=== PATIENT | female | born 1945 | race Caucasian/White ===

== ENCOUNTER 2017-08-31 09:58 | Emergency (ER) | payer SELFPAY ==
[~2017-08-31] VITALS: Ht 154.9 cm; Wt 77.0 kg
[~2017-08-31 09:58] MED LIST: GLIP-95; LISI10TA2; MTF1000T
[2017-08-31 10:02] VITALS: Ht 154.9 cm; Wt 77.0 kg
[2017-08-31] MEDS ORDERED: LACTATED RINGER'S 1,000 ML IV STA (10:54)
[2017-08-31] MEDS ORDERED: SOD CHLORIDE 0.9% 2,000 ML IV STA (10:54)
[2017-08-31 11:43] LABS: BASOPHIL # 0.1 10^3/ul (0.0-0.1); BASOPHILS % 0.7 % (0.0-2.0); EOSINOPHILS # 0.1 10^3/ul (0.0-0.5); HEMOGLOBIN 11.8 g/dl (12.0-16.0); LYMPHOCYTES # 2.5 10^3/ul (0.8-2.9); LYMPHOCYTES % 24.4 % (15.0-51.0); MEAN CORPUSCULAR HEMOGLOBIN 28.6 pg (29.0-33.0); MEAN CORPUSCULAR HGB CONC 32.8 g/dl (32.0-37.0); MEAN CORPUSCULAR VOLUME 87.4 fl (82.0-101.0); MEAN PLATELET VOLUME 10.5 fl (7.4-10.4); MONOCYTE # 0.7 10^3/ul (0.3-0.9); MONOCYTES % 6.7 % (0.0-11.0); NEUTROPHIL # 6.9 10^3/ul (1.6-7.5); NEUTROPHILS % 66.8 % (39.0-77.0); PLATELET COUNT 332 10^3/UL (140-415); RED BLOOD COUNT 4.12 10^6/ul (4.20-5.40); RED CELL DISTRIBUTION WIDTH 12.3 % (11.5-14.5); WHITE BLOOD COUNT 10.3 10^3/ul (4.8-10.8)
[2017-08-31 12:00] LABS: CALCIUM 8.7 mg/dl (8.4-10.2); CREATININE 1.22 mg/dl (0.44-1.00); POTASSIUM 4.6 mmol/L (3.5-5.1)
[2017-08-31 12:11] LABS: ADD UMIC YES; UR ASCORBIC ACID NEGATIVE (NEGATIVE); UR BACTERIA MANY /HPF (NONE SEEN); UR BILIRUBIN (Dip) NEGATIVE (NEGATIVE); UR BLOOD (Dip) 1+ mg/dL (NEGATIVE); UR CLARITY SLIGHTLY CLOUDY (CLEAR); UR COLOR YELLOW (YELLOW); UR GLUCOSE (Dip) 3+ mg/dL (NEGATIVE); UR KETONES (Dip) NEGATIVE (NEGATIVE); UR LEUKOCYTE ESTERASE (Dip) TRACE Leu/ul (NEGATIVE); UR MUCUS FEW /HPF (NONE SEEN); UR NITRITE (Dip) NEGATIVE (NEGATIVE); UR RBC 1 /HPF (0-5); UR SPECIFIC GRAVITY (Dip) 1.017 (1.003-1.030); UR SQUAMOUS EPITHELIAL CELL FEW /HPF (FEW); UR TOTAL PROTEIN (Dip) NEGATIVE (NEGATIVE); UR UROBILINOGEN (Dip) NEGATIVE (NEGATIVE)
[2017-08-31] MEDS ORDERED: NITROFURANTOIN (SR) 100 MG CAP PO ONE (12:30)
[2017-08-31] MEDS ORDERED: NITR-58 PO (12:31)
[2017-08-31] MEDS ORDERED: GABA300C16 PO (12:54)
[2017-08-31] MEDS ORDERED: HYDR25TA6 PO (12:54)
[2017-08-31] MEDS ORDERED: ATOR40TA68 PO (12:54)
[2017-08-31] MEDS ORDERED: INSU100I27 SQ (12:55)
[2017-08-31] MEDS ORDERED: LOSA50TA6 PO (12:55)
[2017-08-31] MEDS ORDERED: NOVO3I SC (12:56)
[2017-08-31] MEDS ORDERED: METF850T PO (12:57)
[2017-08-31 13:32] VITALS: BP 113/65; PULSE 65; RESP 17; TEMP 97.8
--- NOTE | 2017-08-31 14:31 | ERD ---
ER Documentation Chief Complaint Date/Time DATE: 08/31/17 TIME: 14:29 Chief Complaint hyperglicemia, non symtomatic, on insulin HPI Patient is a 71-year-old female with diabetes who presents with high blood sugar. She has had high blood sugar for the past 8 days. She takes insulin and pills. She felt dizzy. She said that she is urinating normally. Upon review of old medical records the patient one previous visit to the ER in 2010. Her primary doctor is Dr. Manzanares. She has not called the doctor as of yet. ROS All systems reviewed and are negative except as per history of present illness. Medications Home Meds Active Scripts Nitrofurantoin Monohyd Macrocr* (Macrobid*) 100 Mg Capsr, 100 MG PO BID for 7 Days, CAP Prov:ADDIS CORCORAN MD 08/31/17 Reported Medications Metformin Hcl* (Metformin Hcl*) 850 Mg Tablet, 850 MG PO WITH BREAKFAST DINNE, # 30 TAB 08/31/17 Insulin Aspart* (Novolog Insulin Pen*) 100 Unit/Ml Soln, 10 UNIT SC AC MEALS, EA 08/31/17 Insulin Detemir (Levemir Flextouch) 100 Unit/1 Ml Insuln.pen, 30 UNIT SQ QHS 08/31/17 Losartan Potassium* (Losartan Potassium*) 50 Mg Tablet, 50 MG PO DAILY, TAB 08/31/17 Hydrochlorothiazide* (Hydrochlorothiazide*) 25 Mg Tab, 25 MG PO DAILY, #30 TAB 08/31/17 Gabapentin* (Gabapentin*) 300 Mg Capsule, 300 MG PO QHS, #60 CAP 08/31/17 Atorvastatin* (Atorvastatin*) 40 Mg Tablet, 40 MG PO QHS, #30 TAB 08/31/17 Discontinued Reported Medications Glipizide* (Glipizide*) 10 Mg Tablet 01/03/11 Lisinopril* (Lisinopril*) 10 Mg Tablet 01/03/11 Metformin* (Glucophage*) 1,000 Mg Tablet 01/03/11 Allergies Allergies: Coded Allergies: No Known Allergies (Verified Allergy, Mild, 08/31/17) PMhx/Soc History of Surgery: Yes (L FOOT) Anesthesia Reaction: No Hx Neurological Disorder: No Hx Respiratory Disorders: No Hx Cardiac Disorders: Yes (HTN) Hx Psychiatric Problems: No Hx Miscellaneous Medical Probl: Yes (DM) Hx Alcohol Use: No Hx Substance Use: No Hx Tobacco Use: No Smoking Status: Never smoker FmHx Family History: diabetes Physical Exam Vitals Vital Signs Date Time Temp Pulse Resp B/P Pulse Ox O2 Delivery O2 Flow Rate FiO2 08/31/17 13:32 97.8 65 17 113/65 100 Room Air 08/31/17 10:02 98.1 83 18 201/95 99 Physical Exam Const: No acute distress Head: Atraumatic Eyes: Normal Conjunctiva ENT: Normal External Ears, Nose and Mouth. Neck: Full range of motion..~ No meningismus. Resp: Clear to auscultation bilaterally Cardio: Regular rate and rhythm, no murmurs Abd: Soft, non tender, non distended. Normal bowel sounds Skin: No petechiae or rashes Back: No midline or flank tenderness Ext: No cyanosis, or edema Neur: Awake and alert Psych: Normal Mood and Affect Result Diagram: 08/31/17 1130 08/31/17 1130 Results 24 hrs Laboratory Tests Test 08/31/17 11:30 08/31/17 11:55 08/31/17 13:00 08/31/17 13:01 White Blood Count 10.310^3/ul Red Blood Count 4.1210^6/ul Hemoglobin 11.8g/dl Hematocrit 36.0% Mean Corpuscular Volume 87.4fl Mean Corpuscular Hemoglobin 28.6pg Mean Corpuscular Hemoglobin Concent 32.8g/dl Red Cell Distribution Width 12.3% Platelet Count 13907^3/UL Mean Platelet Volume 10.5fl Neutrophils % 66.8% Lymphocytes % 24.4% Monocytes % 6.7% Eosinophils % 1.0% Basophils % 0.7% Nucleated Red Blood Cells % 0.0/100WBC Neutrophils # 6.910^3/ul Lymphocytes # 2.510^3/ul Monocytes # 0.710^3/ul Eosinophils # 0.110^3/ul Basophils # 0.110^3/ul Nucleated Red Blood Cells # 0.010^3/ul Sodium Level 135mmol/L Potassium Level 4.6mmol/L Chloride Level 101mmol/L Carbon Dioxide Level 24mmol/L Anion Gap 15 Blood Urea Nitrogen 41mg/dl Creatinine 1.22mg/dl Glucose Level 361mg/dl Calcium Level 8.7mg/dl Urine Color YELLOW Urine Clarity SLIGHTLY CLOUDY Urine pH 5.0 Urine Specific [place] 1.017 Urine Ketones NEGATIVEmg/dL Urine Nitrite NEGATIVEmg/dL Urine Bilirubin NEGATIVEmg/dL Urine Urobilinogen NEGATIVEmg/dL Urine Leukocyte Esterase TRACELeu/ul Urine Microscopic RBC 1/HPF Urine Microscopic WBC 5/HPF Urine Squamous Epithelial Cells FEW/HPF Urine Bacteria MANY/HPF Urine Mucus FEW/HPF Urine Hemoglobin 1+mg/dL Urine Glucose 3+mg/dL Urine Total Protein NEGATIVEmg/dl Lactic Acid Level 2.7mmol/L Bedside Glucose 234mg/dL Current Medications Medications (Trade) Dose Ordered Sig/Juli Route PRN Reason Start Time Stop Time Status Last Admin Dose Admin Sodium Chloride 2,000 ml @ 1,000 mls/hr Q2H STAT IV 08/31/17 10:54 08/31/17 12:53 DC 08/31/17 11:55 Lactated Ringer's (Lr) 1,000 ml @ 1,000 mls/hr Q1H STAT IV 08/31/17 10:54 08/31/17 11:53 DC 08/31/17 12:00 Nitrofurantoin Macrocrystals (Macrobid) 100 mg ONCE ONCE PO 08/31/17 12:30 08/31/17 12:31 DC 08/31/17 13:17 Procedures/MDM Patient is a 71-year-old female who presents with hyperglycemia. At this point there is no sign of diabetic ketoacidosis. Urinalysis shows acute infection and she will be treated with Macrobid. Her lactic acid is slightly elevated at 2.7 but I do not think she has sepsis. I believe outpatient management is appropriate she will need to follow-up closely with Dr. Manzanares within 24-48 hours. She should continue to take her insulin and diabetic pills as prescribed. She was given fluids to help improve the hyperglycemia. She can return for any worsening symptoms. Departure Diagnosis: Primary Impression: Cystitis Additional Impression: Hyperglycemia Condition: Fair Patient Instructions: Hyperglycemia (High Blood Sugar), Cystitis Referrals: FLAVIA MANZANARES MD Additional Instructions: Llame al doctor MAANA y lorin raman TANYA PARA DENTRO DE 1-2 CHOU.Dgale a la secretaria que nosotros le instruimos hacer esta tanya.Avise o llame si womack condicin se empeora antes de la tanya. Regresa aqui si peor o no mejor. ADDIS CORCORAN MD Aug 31, 2017 14:31
== END 2017-08-31 13:34 | disposition home or self-care (01) ==
LOC: E/R 09:58
DX: N30.90 Cystitis, unspecified without hematuria (principal); E11.65 Type 2 diabetes mellitus with hyperglycemia; I10 Essential (primary) hypertension; Z79.4 Long term (current) use of insulin; Z79.84 Long term (current) use of oral hypoglycemic drugs
CPT/HCPCS: 36415; 80048; 81001; 82962; 83605; 85025; 99284; J7030; J7120

== ENCOUNTER 2017-09-08 14:33 | Emergency (ER) | payer SELFPAY ==
[~2017-09-08] VITALS: Ht 157.5 cm; Wt 67.0 kg
[~2017-09-08 14:33] MED LIST changes: +ATOR40TA68 PO; +GABA300C16 PO; -GLIP-95; +HYDR25TA6 PO; +INSU100I27 SQ; -LISI10TA2; +LOSA50TA6 PO; +METF850T PO; -MTF1000T; +NITR-58 PO; +NOVO3I SC
[2017-09-08 14:45] VITALS: Ht 157.5 cm; Wt 67.0 kg
[2017-09-08] MEDS: LACTATED RINGER'S 1,000 ML IV STA ×2 (19:45→20:11)
[2017-09-08] MEDS ORDERED: SOD CHLORIDE 0.9% 2,000 ML IV STA (19:45)
[2017-09-08 20:19] LABS: BASOPHIL # 0.1 10^3/ul (0.0-0.1); BASOPHILS % 0.4 % (0.0-2.0); EOSINOPHILS # 0.2 10^3/ul (0.0-0.5); EOSINOPHILS % 1.4 % (0.0-7.0); HEMATOCRIT 37.2 % (37.0-47.0); HEMOGLOBIN 11.8 g/dl (12.0-16.0); LYMPHOCYTES # 3.5 10^3/ul (0.8-2.9); LYMPHOCYTES % 31.1 % (15.0-51.0); MEAN CORPUSCULAR HEMOGLOBIN 27.6 pg (29.0-33.0); MEAN CORPUSCULAR HGB CONC 31.7 g/dl (32.0-37.0); MEAN CORPUSCULAR VOLUME 86.9 fl (82.0-101.0); MEAN PLATELET VOLUME 10.4 fl (7.4-10.4); MONOCYTE # 0.9 10^3/ul (0.3-0.9); MONOCYTES % 8.1 % (0.0-11.0); NEUTROPHIL # 6.5 10^3/ul (1.6-7.5); NEUTROPHILS % 58.4 % (39.0-77.0); PLATELET COUNT 347 10^3/UL (140-415); RED BLOOD COUNT 4.28 10^6/ul (4.20-5.40); RED CELL DISTRIBUTION WIDTH 12.7 % (11.5-14.5); WHITE BLOOD COUNT 11.2 10^3/ul (4.8-10.8)
[2017-09-08] MEDS ORDERED: LABETALOL HCL 20MG INJ IV ONE (20:30)
[2017-09-08 20:32] LABS: CALCIUM 9.2 mg/dl (8.4-10.2); CREATININE 0.87 mg/dl (0.44-1.00); POTASSIUM 4.5 mmol/L (3.5-5.1)
[2017-09-08] MEDS ORDERED: METF850T PO (20:50)
[2017-09-08] MEDS ORDERED: LEVEM SC (20:50)
[2017-09-08] MEDS ORDERED: LOSA50TA6 PO (20:50)
[2017-09-08] MEDS ORDERED: HYDR25TA6 PO (20:50)
[2017-09-08] MEDS ORDERED: INSU100C3 SQ (20:50)
[2017-09-08 20:58] VITALS: BP 146/67; PULSE 72; RESP 17; TEMP 98.3
[2017-09-08 20:58] LABS: ADD UMIC YES; UR ASCORBIC ACID NEGATIVE (NEGATIVE); UR BACTERIA MANY /HPF (NONE SEEN); UR BILIRUBIN (Dip) NEGATIVE (NEGATIVE); UR BLOOD (Dip) 1+ mg/dL (NEGATIVE); UR CLARITY SLIGHTLY CLOUDY (CLEAR); UR COLOR YELLOW (YELLOW); UR GLUCOSE (Dip) 3+ mg/dL (NEGATIVE); UR KETONES (Dip) NEGATIVE (NEGATIVE); UR LEUKOCYTE ESTERASE (Dip) 1+ Leu/ul (NEGATIVE); UR NITRITE (Dip) POSITIVE (NEGATIVE); UR RBC 1 /HPF (0-5); UR SPECIFIC GRAVITY (Dip) 1.009 (1.003-1.030); UR SQUAMOUS EPITHELIAL CELL FEW /HPF (FEW); UR TOTAL PROTEIN (Dip) NEGATIVE (NEGATIVE); UR UROBILINOGEN (Dip) NEGATIVE (NEGATIVE)
--- NOTE | 2017-09-08 21:22 | ERD ---
ER Documentation Chief Complaint Date/Time DATE: 09/08/17 TIME: 21:20 Chief Complaint dizzines off meds x 2 weeks HPI Patient is a 71-year-old female with hypertension and diabetes who presents with dizziness. The patient has had dizziness for the past 2 weeks. She has not had her medications for the past 15 days. She try to go to Dr. Manzanares but her insurance had been switched and so he was not able to see her. The patient is missing prescriptions for Levemir, metformin, NovoLog, hydrochlorothiazide, and losartan. ROS All systems reviewed and are negative except as per history of present illness. Medications Home Meds Active Scripts Losartan Potassium* (Losartan Potassium*) 50 Mg Tablet, 50 MG PO DAILY, #30 TAB Prov:ADDIS CORCORAN MD 09/08/17 Hydrochlorothiazide* (Hydrochlorothiazide*) 25 Mg Tab, 25 MG PO DAILY, #30 TAB Prov:ADDIS CORCORAN MD 09/08/17 Insulin Aspart (Novolog) 100 Unit/1 Ml Cartridge, 10 UNIT SQ WITH MEALS, #1 Prov:ADDIS CORCORAN MD 09/08/17 Metformin Hcl* (Metformin Hcl*) 850 Mg Tablet, 850 MG PO BID, #60 TAB Prov:ADDIS CORCORAN MD 09/08/17 Insulin Detemir (Levemir) 100 Unit/1 Ml Vial, 30 UNIT SC QHS, #1 VIAL Prov:ADDIS CORCORAN MD 09/08/17 Reported Medications Metformin Hcl* (Metformin Hcl*) 850 Mg Tablet, 850 MG PO WITH BREAKFAST DINNE, # 30 TAB 08/31/17 Insulin Aspart* (Novolog Insulin Pen*) 100 Unit/Ml Soln, 10 UNIT SC AC MEALS qam , EA 08/31/17 Insulin Detemir (Levemir Flextouch) 100 Unit/1 Ml Insuln.pen, 30 UNIT SQ QHS 08/31/17 Losartan Potassium* (Losartan Potassium*) 50 Mg Tablet, 50 MG PO DAILY, TAB 08/31/17 Hydrochlorothiazide* (Hydrochlorothiazide*) 25 Mg Tab, 25 MG PO DAILY, #30 TAB 08/31/17 Gabapentin* (Gabapentin*) 300 Mg Capsule, 300 MG PO QHS, #60 CAP 08/31/17 Atorvastatin* (Atorvastatin*) 40 Mg Tablet, 40 MG PO QHS, #30 TAB 08/31/17 Discontinued Scripts Nitrofurantoin Monohyd Macrocr* (Macrobid*) 100 Mg Capsr, 100 MG PO BID for 7 Days, CAP Prov:ADDIS CORCORAN MD 08/31/17 Allergies Allergies: Coded Allergies: No Known Allergies (Verified Allergy, Mild, 09/08/17) PMhx/Soc History of Surgery: Yes (toe amputation) Anesthesia Reaction: No Hx Neurological Disorder: No Hx Respiratory Disorders: No Hx Cardiac Disorders: Yes (HTN, high cholesterol) Hx Psychiatric Problems: No Hx Miscellaneous Medical Probl: Yes (DM) Hx Alcohol Use: No Hx Substance Use: No Hx Tobacco Use: No Smoking Status: Never smoker FmHx Family History: diabetes Physical Exam Vitals Vital Signs Date Time Temp Pulse Resp B/P Pulse Ox O2 Delivery O2 Flow Rate FiO2 09/08/17 20:58 98.3 72 17 146/67 99 Room Air 09/08/17 14:45 98.3 81 18 185/81 99 Physical Exam Const: No acute distress Head: Atraumatic Eyes: Normal Conjunctiva ENT: Normal External Ears, Nose and Mouth. Neck: Full range of motion..~ No meningismus. Resp: Clear to auscultation bilaterally Cardio: Regular rate and rhythm, no murmurs Abd: Soft, non tender, non distended. Normal bowel sounds Skin: No petechiae or rashes Back: No midline or flank tenderness Ext: No cyanosis, or edema Neur: Awake and alert, no slurred speech, no pronator drift, strength is 5 out of 5 in all 4 extremities, cranial nerves II through XII are intact Psych: Normal Mood and Affect Result Diagram: 09/08/17199909/08/171999 Results 24 hrs Laboratory Tests Test 09/08/17 19:47 09/08/17 20:00 Bedside Glucose 244mg/dL White Blood Count 11.210^3/ul Red Blood Count 4.2810^6/ul Hemoglobin 11.8g/dl Hematocrit 37.2% Mean Corpuscular Volume 86.9fl Mean Corpuscular Hemoglobin 27.6pg Mean Corpuscular Hemoglobin Concent 31.7g/dl Red Cell Distribution Width 12.7% Platelet Count 92349^3/UL Mean Platelet Volume 10.4fl Neutrophils % 58.4% Lymphocytes % 31.1% Monocytes % 8.1% Eosinophils % 1.4% Basophils % 0.4% Nucleated Red Blood Cells % 0.0/100WBC Neutrophils # 6.510^3/ul Lymphocytes # 3.510^3/ul Monocytes # 0.910^3/ul Eosinophils # 0.210^3/ul Basophils # 0.110^3/ul Nucleated Red Blood Cells # 0.010^3/ul Urine Color YELLOW Urine Clarity SLIGHTLY CLOUDY Urine pH 5.0 Urine Specific [place] 1.009 Urine Ketones NEGATIVEmg/dL Urine Nitrite POSITIVEmg/dL Urine Bilirubin NEGATIVEmg/dL Urine Urobilinogen NEGATIVEmg/dL Urine Leukocyte Esterase 1+Ben/ul Urine Microscopic RBC 1/HPF Urine Microscopic WBC 12/HPF Urine Squamous Epithelial Cells FEW/HPF Urine Bacteria MANY/HPF Urine Hemoglobin 1+mg/dL Urine Glucose 3+mg/dL Urine Total Protein NEGATIVEmg/dl Sodium Level 135mmol/L Potassium Level 4.5mmol/L Chloride Level 97mmol/L Carbon Dioxide Level 31mmol/L Anion Gap 12 Blood Urea Nitrogen 25mg/dl Creatinine 0.87mg/dl Glucose Level 263mg/dl Lactic Acid Level 1.8mmol/L Calcium Level 9.2mg/dl Current Medications Medications (Trade) Dose Ordered Sig/Juli Route PRN Reason Start Time Stop Time Status Last Admin Dose Admin Sodium Chloride 2,000 ml @ 1,000 mls/hr Q2H STAT IV 09/08/17 19:45 09/08/17 21:44 09/08/17 20:16 Lactated Ringer's (Lr) 1,000 ml @ 1,000 mls/hr Q1H STAT IV 09/08/17 19:45 09/08/17 20:44 DC Labetalol HCl (Labetalol) 20 mg ONCE ONCE IV 09/08/17 20:30 09/08/17 20:31 DC 09/08/17 20:28 Procedures/MDM Patient is a 71-year-old female with hypertension and diabetes who presents with dizziness. She has not had her medications for 15 days and symptoms started 14 days ago. I believe this is likely related to the fact that she is not taking medication. The patient will be given a prescription for Levemir, metformin, NovoLog, hydrochlorothiazide, and losartan. The patient will need to follow-up with a new primary doctor and I will give her information for the local clinics which she should follow-up in 24-48 hours. The patient can return for any worsening symptoms. There is no signs of diabetic ketoacidosis. I doubt stroke. Departure Diagnosis: Primary Impression: Hypertension Hypertension type: essential hypertension Qualified Code: I10 - Essential hypertension Additional Impressions: Dizziness Hyperglycemia Condition: Fair Patient Instructions: Hyperglycemia (High Blood Sugar), High Blood Pressure ( Hypertension) [facility] Usted se bundy hecho un examen mdico de control que le indica que no est en raman condicin que requiera tratamiento urgente en el Departamento de Emergencia. Un estudio ms profundo y el tratamiento de womack condicin pueden esperar sin ningn riesgo hasta que usted sea atendida/o en el consultorio de womack mdico o raman cl flora. Es responsabilidad suya arreglar raman tanya para el seguimiento del jaylan. MANEJO DE CONDICIONES NO URGENTES EN EL FUTURO 1) Si usted tiene un mdico de atencin primaria: Usted debera llamar a womack mdico de atencin primaria antes de venir al departamento de emergencia. Despus de las horas de consultorio, womack doctor o womack asociado/a est disponible por telfono. El mdico o enfermero de joselo en el servicio telefnico puede asesorarle por arik medio para atender el problema, o jaylan contrario se puede programar raman tanay. 2) Si usted no tiene un mdico de atencin primaria: Llame al mdico o clnica de referencia que aparece abajo [place] las horas de consultorio para hacer raman tanya para que le vean. CLINICAS: [facility] 451 [phone] [address] [facility] [phone] [address] [facility] [phone] [address] [facility] 607 [phone] [address] [facility] 485 [phone] [address] [facility] [phone] [address] Additional Instructions: Llame al doctor MAANA y lorin raman TANYA PARA DENTRO DE 1-2 CHOU.Dgale a la secretaria que nosotros le instruimos hacer esta tanya.Avise o llame si womack condicin se empeora antes de la tanya. Regresa aqui si peor o no mejor. ADDIS CORCORAN MD Sep 08, 2017 21:22
== END 2017-09-08 21:33 | disposition home or self-care (01) ==
LOC: E/R 14:33
DX: I10 Essential (primary) hypertension (principal); E11.65 Type 2 diabetes mellitus with hyperglycemia; Z79.4 Long term (current) use of insulin; Z79.84 Long term (current) use of oral hypoglycemic drugs
CPT/HCPCS: 36415; 80048; 81001; 82962; 83605; 85025; 96374; 99284; J7030; J7120

== ENCOUNTER 2017-09-18 09:31 | Emergency (ER) | payer SELFPAY ==
[~2017-09-18] VITALS: Ht 152.4 cm; Wt 75.5 kg
[~2017-09-18 09:31] MED LIST changes: +INSU100C3 SQ; +LEVEM SC; -NITR-58 PO
[2017-09-18 09:38] VITALS: Ht 152.4 cm; Wt 75.5 kg
[2017-09-18] MEDS ORDERED: FAMOTIDINE 20 MG INJ IV STA (12:00)
[2017-09-18] MEDS ORDERED: ONDANSETRON 4 MG INJ IV STA (12:00)
[2017-09-18] MEDS ORDERED: SOD CHLORIDE 0.9% 500 ML IV STA (12:00)
[2017-09-18 12:33] LABS: BASOPHIL # 0.1 10^3/ul (0.0-0.1); BASOPHILS % 0.6 % (0.0-2.0); EOSINOPHILS # 0.2 10^3/ul (0.0-0.5); HEMATOCRIT 37.9 % (37.0-47.0); HEMOGLOBIN 12.2 g/dl (12.0-16.0); LYMPHOCYTES # 2.9 10^3/ul (0.8-2.9); LYMPHOCYTES % 28.9 % (15.0-51.0); MEAN CORPUSCULAR HEMOGLOBIN 28.4 pg (29.0-33.0); MEAN CORPUSCULAR HGB CONC 32.2 g/dl (32.0-37.0); MEAN CORPUSCULAR VOLUME 88.3 fl (82.0-101.0); MONOCYTE # 0.7 10^3/ul (0.3-0.9); MONOCYTES % 7.4 % (0.0-11.0); NEUTROPHIL # 6.1 10^3/ul (1.6-7.5); NEUTROPHILS % 60.8 % (39.0-77.0); PLATELET COUNT 363 10^3/UL (140-415); RED BLOOD COUNT 4.29 10^6/ul (4.20-5.40); RED CELL DISTRIBUTION WIDTH 12.8 % (11.5-14.5)
--- NOTE | 2017-09-18 12:34 | RADRPT ---
PROCEDURE: CT ABDOMEN AND PELVIS WITHOUT CONTRAST. CLINICAL INDICATION: Upper abdominal pain TECHNIQUE: CT scan of the abdomen and pelvis without contrast was performed on a multidetector hig h-resolution CT scanner. The patient was scanned without intravenous contrast. Coronal and sagittal reformatted images were obtained from the axial source images. Images were reviewed on a high-resol RealD PACS workstation. The total exam CTDI equals 18.8 mGy and the total exam DLP equals 1097 mGy-c m. One or more of the following dose reduction techniques were used: Automated exposure control. Adjustment of the mA and/or kV according to patient size. Use of iterative reconstruction technique. COMPARISON: None FINDINGS: CT abdomen: The lung bases are clear. The heart size is within limits. There is no significant pericardial effus ion. Hepatic morphology is within normal limits. No gross contour deforming masses. The gallbladder is wi thin normal limits. No evidence of intrahepatic or extrahepatic biliary dilatation. The spleen and pancreas are within normal limits. Both adrenal glands are within normal limits. Both kidneys are and normal anatomic position. There is nonspecific bilateral perinephric fat strand ing. No gross renal/ureteric calculi. No evidence of obstruction or hydronephrosis. The visualized GI tract demonstrates collapse stomach. Normal caliber loops of small and large bowel noted. No evidence of bowel obstruction. The appendix is within normal limits. Atherosclerotic calcification of the aorta is identified. There is no significant retroperitoneal ly mphadenopathy. CT pelvis: There is thickening of the wall the bladder and several foci of air is noted within the lumen of the bladder.. There is calcified leiomyomatous uterus. The rectosigmoid colon is within normal limits. No significant free fluid. No significant pelvic lymphadenopathy. The visualized osseous structures demonstrates multilevel degenerative disease of the spine. IMPRESSION: 1. No evidence of bowel obstruction. The appendix is within normal limits. 2. Thickening of the wall the bladder, cannot exclude infectious versus inflammatory cystitis. Sever al foci of air is noted within the lumen of the bladder, which may be related to recent catheterizat ion. Correlate clinically otherwise, infection is not excluded. 3. Calcified leiomyomatous uterus. 4. Atherosclerosis of the aorta. 5. Nonspecific bilateral perinephric fat stranding. No gross renal/ureteric calculi. No evidence of obstruction or hydronephrosis. RPTAT: AAPP Physician Alysia Date Time Electronically viewed and signed by Agustín Ríos Physician on 09/18/2017 12:34 JL/
[2017-09-18 12:38] LABS: ADD UMIC YES; UR ASCORBIC ACID NEGATIVE (NEGATIVE); UR BACTERIA MODERATE /HPF (NONE SEEN); UR BILIRUBIN (Dip) NEGATIVE (NEGATIVE); UR BLOOD (Dip) 1+ mg/dL (NEGATIVE); UR CLARITY CLEAR (CLEAR); UR COLOR YELLOW (YELLOW); UR GLUCOSE (Dip) 1+ mg/dL (NEGATIVE); UR KETONES (Dip) NEGATIVE (NEGATIVE); UR LEUKOCYTE ESTERASE (Dip) NEGATIVE Leu/ul (NEGATIVE); UR NITRITE (Dip) NEGATIVE (NEGATIVE); UR RBC 0 /HPF (0-5); UR SPECIFIC GRAVITY (Dip) 1.011 (1.003-1.030); UR TOTAL PROTEIN (Dip) NEGATIVE (NEGATIVE); UR UROBILINOGEN (Dip) NEGATIVE (NEGATIVE)
[2017-09-18 12:49] LABS: ALBUMIN 4.2 g/dl (3.3-4.9); ALBUMIN/GLOBULIN RATIO 0.93; BILIRUBIN,INDIRECT 0.2 mg/dl (0-1.1); BILIRUBIN,TOTAL 0.2 mg/dl (0.2-1.3); CREATININE 0.88 mg/dl (0.44-1.00); POTASSIUM 4.6 mmol/L (3.5-5.1); TOTAL PROTEIN 8.7 g/dl (6.1-8.1)
--- NOTE | 2017-09-18 13:20 | ERD ---
ER Documentation Chief Complaint Chief Complaint Complains of abdominal pain x 3 days HPI This is a 71-year-old female who presents to the emergency room for evaluation of abdominal pain. The patient states that she has had abdominal pain for the past 3 days. She states it is located in the midportion of abdomen and described as a burning pain made worse with food. The patient denies any radiation of the pain. She denies any chest pain or palpitations or shortness of breath associated with this. She denies any diarrhea. She came to the emergency room for evaluation of her pain. ROS All systems reviewed and are negative except as per history of present illness. Medications Home Meds Reported Medications Metformin Hcl* (Metformin Hcl*) 850 Mg Tablet, 850 MG PO WITH BREAKFAST DINNE, # 30 TAB 08/31/17 Insulin Aspart* (Novolog Insulin Pen*) 100 Unit/Ml Soln, 10 UNIT SC AC MEALS qam , EA 08/31/17 Insulin Detemir (Levemir Flextouch) 100 Unit/1 Ml Insuln.pen, 30 UNIT SQ QHS 08/31/17 Losartan Potassium* (Losartan Potassium*) 50 Mg Tablet, 50 MG PO DAILY, TAB 08/31/17 Hydrochlorothiazide* (Hydrochlorothiazide*) 25 Mg Tab, 25 MG PO DAILY, #30 TAB 08/31/17 Gabapentin* (Gabapentin*) 300 Mg Capsule, 300 MG PO QHS, #60 CAP 08/31/17 Atorvastatin* (Atorvastatin*) 40 Mg Tablet, 40 MG PO QHS, #30 TAB 08/31/17 Discontinued Scripts Losartan Potassium* (Losartan Potassium*) 50 Mg Tablet, 50 MG PO DAILY, #30 TAB Prov:ADDIS CORCORAN MD 09/08/17 Hydrochlorothiazide* (Hydrochlorothiazide*) 25 Mg Tab, 25 MG PO DAILY, #30 TAB Prov:ADDIS CORCORAN MD 09/08/17 Insulin Aspart (Novolog) 100 Unit/1 Ml Cartridge, 10 UNIT SQ WITH MEALS, #1 Prov:ADDIS CORCORAN MD 09/08/17 Metformin Hcl* (Metformin Hcl*) 850 Mg Tablet, 850 MG PO BID, #60 TAB Prov:ADDIS CORCORAN MD 09/08/17 Insulin Detemir (Levemir) 100 Unit/1 Ml Vial, 30 UNIT SC QHS, #1 VIAL Prov:ADDIS CORCORAN MD 09/08/17 Allergies Allergies: Coded Allergies: No Known Allergies (Verified Allergy, Mild, 09/18/17) PMhx/Soc History of Surgery: Yes (toe amputation) Anesthesia Reaction: No Hx Neurological Disorder: No Hx Respiratory Disorders: No Hx Cardiac Disorders: Yes (HTN, high cholesterol) Hx Psychiatric Problems: No Hx Miscellaneous Medical Probl: Yes (DM) Hx Alcohol Use: No Hx Substance Use: No Hx Tobacco Use: No Smoking Status: Never smoker Physical Exam Vitals Vital Signs Date Time Temp Pulse Resp B/P Pulse Ox O2 Delivery O2 Flow Rate FiO2 09/18/17 13:03 97.1 80 20 164/81 100 Room Air 09/18/17 09:38 97.1 83 20 190/89 93 Physical Exam INITIAL VITAL SIGNS: Reviewed by me GENERAL: The patient is well developed and appropriate for usual state of health in no apparent distress HEENT: Pupils equal, round, and reactive to light. EOMI. There is no scleral icterus. NECK: C-spine is soft and supple, there is no meningismus. There is no cervical lymphadenopathy. LUNGS: Clear to auscultation bilaterally. There are no rales, wheezes or rhonchi. HEART: Regular rate and rhythm, no murmurs, clicks, rubs or gallops. ABDOMEN: Epigastric tenderness to palpation, negative Griffith sign, soft, non- tender, non-distended. There are bowel sounds in all four quadrants. No rebound or guarding. EXTREMITIES: There is no peripheral cyanosis or edema. No focal swelling or erythema. NEUROLOGICAL: The patient moves all four extremities with 5/5 strength. Cranial nerves II - XII are intact. Normal gait. Alert and oriented SKIN: There is no apparent rash or petechiae. HEME/LYMPHATIC: There is no evidence of excessive bruising or lymphedema. PSYCHIATRIC: The patient does not appear anxious or depressed. Result Diagram: 09/18/17 1210 09/18/17 1210 Results 24 hrs Laboratory Tests Test 09/18/17 12:05 09/18/17 12:10 Urine Color YELLOW Urine Clarity CLEAR Urine pH 5.0 Urine Specific [place] 1.011 Urine Ketones NEGATIVEmg/dL Urine Nitrite NEGATIVEmg/dL Urine Bilirubin NEGATIVEmg/dL Urine Urobilinogen NEGATIVEmg/dL Urine Leukocyte Esterase NEGATIVELeu/ul Urine Microscopic RBC 0/HPF Urine Microscopic WBC 1/HPF Urine Bacteria MODERATE/HPF Urine Hemoglobin 1+mg/dL Urine Glucose 1+mg/dL Urine Total Protein NEGATIVEmg/dl White Blood Count 10.010^3/ul Red Blood Count 4.2910^6/ul Hemoglobin 12.2g/dl Hematocrit 37.9% Mean Corpuscular Volume 88.3fl Mean Corpuscular Hemoglobin 28.4pg Mean Corpuscular Hemoglobin Concent 32.2g/dl Red Cell Distribution Width 12.8% Platelet Count 36982^3/UL Mean Platelet Volume 10.0fl Neutrophils % 60.8% Lymphocytes % 28.9% Monocytes % 7.4% Eosinophils % 2.0% Basophils % 0.6% Nucleated Red Blood Cells % 0.0/100WBC Neutrophils # 6.110^3/ul Lymphocytes # 2.910^3/ul Monocytes # 0.710^3/ul Eosinophils # 0.210^3/ul Basophils # 0.110^3/ul Nucleated Red Blood Cells # 0.010^3/ul Sodium Level 140mmol/L Potassium Level 4.6mmol/L Chloride Level 101mmol/L Carbon Dioxide Level 28mmol/L Anion Gap 16 Blood Urea Nitrogen 26mg/dl Creatinine 0.88mg/dl Glucose Level 115mg/dl Calcium Level 10.0mg/dl Total Bilirubin 0.2mg/dl Direct Bilirubin 0.00mg/dl Indirect Bilirubin 0.2mg/dl Aspartate Amino Transf (AST/SGOT) 32IU/L Alanine Aminotransferase (ALT/SGPT) 29IU/L Alkaline Phosphatase 136IU/L Total Protein 8.7g/dl Albumin 4.2g/dl Globulin 4.50g/dl Albumin/Globulin Ratio 0.93 Lipase 65U/L Current Medications Medications (Trade) Dose Ordered Sig/Juli Route PRN Reason Start Time Stop Time Status Last Admin Dose Admin Sodium Chloride (NS) 500 ml @ 500 mls/hr Q1H STAT IV 09/18/17 12:00 09/18/17 12:59 DC 09/18/17 12:38 Ondansetron HCl (Zofran Inj) 4 mg ONCE STAT IV 09/18/17 12:00 09/18/17 12:02 DC 09/18/17 12:38 Famotidine (Pepcid Iv) 20 mg ONCE STAT IV 09/18/17 12:00 09/18/17 12:02 DC 09/18/17 12:38 Procedures/MDM CT abdomen pelvis without:1. No evidence of bowel obstruction. The appendix is within normal limits. 2. Thickening of the wall the bladder, cannot exclude infectious versus inflammatory cystitis. Several foci of air is noted within the lumen of the bladder, which may be related to recent catheterization. Correlate clinically otherwise, infection is not excluded. 3. Calcified leiomyomatous uterus. 4. Atherosclerosis of the aorta. 5. Nonspecific bilateral perinephric fat stranding. No gross renal/ureteric calculi. No evidence of obstruction or hydronephrosis. EKG: Rate/Rhythm: [Normal Sinus Rhythm] QRS, ST, T-waves: [No changes consistent w/ acute ischemia] Impression: [No evidence of ischemia or arrhythmia] This 71 she did have some tenderness to palpation in the epigastric region. The patient did undergo a CT of the abdomen pelvis which does show thickening of the wall of the bladder. The patient was seen in the emergency room earlier this week and was diagnosed with a urinary tract infection has been treated with Macrobid. Her urinalysis has improved from previous. She is having no suprapubic tenderness at this time. Did advise her to continue using her antibiotics until her regimen is over. The patient was given Zofran and Pepcid in the emergency room for her pain and when I reevaluated her she stated she was feeling better. The patient is likely suffering from gastritis. Her EKG is nonischemic, troponin is negative. The patient states that she feels comfortable with discharge at this time. She is denying any chest pain or shortness of breath. My suspicion for ACS is low at this time given the fact that her symptoms have improved with Pepcid and Zofran. This patient was advised she can return to the emergency room at any point for reevaluation and she verbalized understanding. Differential diagnoses entertained was broad with potential high acuity. Patient has been evaluated for appendicitis, cholecystitis, and other high risk medical and surgical causes of abdominal pain. Ultimately the patient's evaluation is nondiagnostic. Based on the patient's lack of risk factors, as well as the patient's clinical, laboratory, and imaging data, the patient appears to be low risk for these high risk causes of abdominal pain. Differential diagnoses entertained was broad with potential high acuity. Patient has been evaluated for acute myocardial infarction, unstable angina, aortic dissection, pulmonary embolism, other intrathoracic and cardiac concerns. Ultimately the patient's evaluation is nondiagnostic. Based on the patient's lack of risk factors, as well as the patient's clinical, laboratory, and imaging data, the patient appears to be low risk for these high risk causes of chest pain. Departure Diagnosis: Primary Impression: Abdominal pain Additional Impression: Cystitis Condition: Stable HERNANDEZ CAMARA DO Sep 18, 2017 13:20
[2017-09-18] MEDS ORDERED: RANI150T9 PO (13:21)
[2017-09-18 14:25] VITALS: BP 146/79; PULSE 83; RESP 20; TEMP 97.1
== END 2017-09-18 14:25 | disposition home or self-care (01) ==
LOC: E/R 09:31
DX: N30.90 Cystitis, unspecified without hematuria (principal); I10 Essential (primary) hypertension; E11.9 Type 2 diabetes mellitus without complications; Z79.4 Long term (current) use of insulin; Z79.84 Long term (current) use of oral hypoglycemic drugs
CPT/HCPCS: 36415; 74176; 80053; 81001; 83690; 84484; 85025; 93005; 96374; 96375; 99285; J2405; J7040

== ENCOUNTER 2017-09-22 10:32 | Emergency (ER) | payer MEDICAID ==
[~2017-09-22] VITALS: Ht 149.9 cm; Wt 73.5 kg
[~2017-09-22 10:32] MED LIST changes: -INSU100C3 SQ; -LEVEM SC; +RANI150T9 PO
[2017-09-22 10:37] VITALS: Ht 149.9 cm; Wt 73.5 kg
--- NOTE | 2017-09-22 12:21 | ERD ---
ER Documentation Chief Complaint Chief Complaint Back pain HPI The patient is a 71-year-old female, presenting to the ER because of back pain intermittently for the last 2 weeks, worse with movement. She also, epigastric abdominal pain intermittently for the last 8 days, associated with constipation and dysuria. She was seen in the ER 2 weeks ago for abdominal pain and had a normal abdominopelvic CT scan. She denies nausea, vomiting, diarrhea. She does not smoke nor drink Past medical history: Hypertension, dyslipidemia, diabetes mellitus, gastritis Past surgical history eye surgery ROS All systems reviewed and are negative except as per history of present illness. Medications Home Meds Active Scripts Tramadol HCl (Tramadol HCl) 50 Mg Tablet, 50 MG PO Q6, #15 TAB Prov:DORINA STEWART MD 09/22/17 Ranitidine Hcl* (Zantac*) 150 Mg Tablet, 150 MG PO BID Y for EPIGASTRIC PAIN, # 30 TAB Prov:HERNANDEZ CAMARA DO 09/18/17 Reported Medications Metformin Hcl* (Metformin Hcl*) 850 Mg Tablet, 850 MG PO WITH BREAKFAST DINNE, # 30 TAB 08/31/17 Insulin Aspart* (Novolog Insulin Pen*) 100 Unit/Ml Soln, 10 UNIT SC AC MEALS qam , EA 08/31/17 Insulin Detemir (Levemir Flextouch) 100 Unit/1 Ml Insuln.pen, 30 UNIT SQ QHS 08/31/17 Losartan Potassium* (Losartan Potassium*) 50 Mg Tablet, 50 MG PO DAILY, TAB 08/31/17 Hydrochlorothiazide* (Hydrochlorothiazide*) 25 Mg Tab, 25 MG PO DAILY, #30 TAB 08/31/17 Gabapentin* (Gabapentin*) 300 Mg Capsule, 300 MG PO QHS, #60 CAP 08/31/17 Atorvastatin* (Atorvastatin*) 40 Mg Tablet, 40 MG PO QHS, #30 TAB 08/31/17 Discontinued Scripts Losartan Potassium* (Losartan Potassium*) 50 Mg Tablet, 50 MG PO DAILY, #30 TAB Prov:ADDIS CORCORAN MD 09/08/17 Hydrochlorothiazide* (Hydrochlorothiazide*) 25 Mg Tab, 25 MG PO DAILY, #30 TAB Prov:ADDIS CORCORAN MD 09/08/17 Insulin Aspart (Novolog) 100 Unit/1 Ml Cartridge, 10 UNIT SQ WITH MEALS, #1 Prov:ADDIS CORCORAN MD 09/08/17 Metformin Hcl* (Metformin Hcl*) 850 Mg Tablet, 850 MG PO BID, #60 TAB Prov:ADDIS CORCORAN MD 09/08/17 Insulin Detemir (Levemir) 100 Unit/1 Ml Vial, 30 UNIT SC QHS, #1 VIAL Prov:ADDIS CORCORAN MD 09/08/17 Allergies Allergies: Coded Allergies: No Known Allergies (Verified Allergy, Mild, 09/18/17) PMhx/Soc History of Surgery: Yes (toe amputation) Anesthesia Reaction: No Hx Neurological Disorder: No Hx Respiratory Disorders: No Hx Cardiac Disorders: Yes (HTN, high cholesterol) Hx Psychiatric Problems: No Hx Miscellaneous Medical Probl: Yes (DM) Hx Alcohol Use: No Hx Substance Use: No Hx Tobacco Use: No Physical Exam Vitals Vital Signs Date Time Temp Pulse Resp B/P Pulse Ox O2 Delivery O2 Flow Rate FiO2 09/22/17 13:15 81 17 186/76 100 Room Air 09/22/17 10:37 98.7 84 19 176/79 96 Physical Exam Const: No acute distress. Head: Atraumatic. Eyes: Normal Conjunctiva. ENT: Normal External Ears, Nose and Mouth. Neck: Full range of motion. No meningismus. Resp: Clear to auscultation bilaterally. Cardio: Regular rate and rhythm. Abd: Soft, non distended, normal bowel sounds, Minimal epigastric discomfort, no right lower quadrant, right upper quadrant, CVA tenderness Skin: No petechiae or rashes. Back: No midline or flank tenderness. Ext: No cyanosis, or edema. Neur: Awake and alert. No focal deficit Psych: Normal Mood and Affect. Result Diagram: 09/22/17 1235 09/22/17 1235 Results 24 hrs Laboratory Tests Test 09/22/17 12:35 White Blood Count 9.910^3/ul Red Blood Count 4.1010^6/ul Hemoglobin 11.7g/dl Hematocrit 36.2% Mean Corpuscular Volume 88.3fl Mean Corpuscular Hemoglobin 28.5pg Mean Corpuscular Hemoglobin Concent 32.3g/dl Red Cell Distribution Width 12.7% Platelet Count 42810^3/UL Mean Platelet Volume 10.0fl Neutrophils % 72.4% Lymphocytes % 19.6% Monocytes % 6.0% Eosinophils % 1.0% Basophils % 0.5% Nucleated Red Blood Cells % 0.0/100WBC Neutrophils # 7.210^3/ul Lymphocytes # 1.910^3/ul Monocytes # 0.610^3/ul Eosinophils # 0.110^3/ul Basophils # 0.110^3/ul Nucleated Red Blood Cells # 0.010^3/ul Urine Color YELLOW Urine Clarity SLIGHTLY CLOUDY Urine pH 5.0 Urine Specific [place] 1.019 Urine Ketones TRACEmg/dL Urine Nitrite NEGATIVEmg/dL Urine Bilirubin NEGATIVEmg/dL Urine Urobilinogen NEGATIVEmg/dL Urine Leukocyte Esterase NEGATIVELeu/ul Urine Microscopic RBC 1/HPF Urine Microscopic WBC 1/HPF Urine Squamous Epithelial Cells FEW/HPF Urine Hemoglobin NEGATIVEmg/dL Urine Glucose 1+mg/dL Urine Total Protein NEGATIVEmg/dl Sodium Level 142mmol/L Potassium Level 4.7mmol/L Chloride Level 101mmol/L Carbon Dioxide Level 29mmol/L Anion Gap 17 Blood Urea Nitrogen 26mg/dl Creatinine 0.98mg/dl Glucose Level 217mg/dl Calcium Level 9.7mg/dl Total Bilirubin 0.4mg/dl Direct Bilirubin 0.00mg/dl Indirect Bilirubin 0.4mg/dl Aspartate Amino Transf (AST/SGOT) 33IU/L Alanine Aminotransferase (ALT/SGPT) 33IU/L Alkaline Phosphatase 151IU/L Total Protein 8.6g/dl Albumin 4.5g/dl Globulin 4.10g/dl Albumin/Globulin Ratio 1.09 Lipase 64U/L Procedures/MDM EKG: Read by emergency physician Rate/Rhythm: Normal Sinus Rhythm 83 beats/min QRS, ST, T-waves: No ST elevation, no T inversion, septal Qs Impression: Abnormal EKG MEDICAL MAKING DECISION: The patient is a 71-year-old female, presenting with acute back pain of unclear etiology. She is stable for outpatient follow-up. The differential diagnoses considered include but are not limited to caudal equina syndrome, spinal abscess, DJD, diskitis, lumbar radiculopathy. Departure Diagnosis: Primary Impression: Back pain Additional Impression: Anemia Condition: Good Comments She was discharged with Ultram I discussed the findings with the patient. I advised the patient to follow-up with the primary physician in about 1-2 days, sooner if needed and return if any concern. Disclaimer: Inadvertent spelling and grammatical errors are likely due to EHR/ dictation software use and do not reflect on the overall quality of patient care. Also, please note that the electronic time recorded on this note does not necessarily reflect the actual time of the patient encounter. DORINA STEWART MD Sep 22, 2017 12:21
[2017-09-22 12:51] LABS: BASOPHIL # 0.1 10^3/ul (0.0-0.1); BASOPHILS % 0.5 % (0.0-2.0); EOSINOPHILS # 0.1 10^3/ul (0.0-0.5); HEMATOCRIT 36.2 % (37.0-47.0); HEMOGLOBIN 11.7 g/dl (12.0-16.0); LYMPHOCYTES # 1.9 10^3/ul (0.8-2.9); LYMPHOCYTES % 19.6 % (15.0-51.0); MEAN CORPUSCULAR HEMOGLOBIN 28.5 pg (29.0-33.0); MEAN CORPUSCULAR HGB CONC 32.3 g/dl (32.0-37.0); MEAN CORPUSCULAR VOLUME 88.3 fl (82.0-101.0); MONOCYTE # 0.6 10^3/ul (0.3-0.9); NEUTROPHIL # 7.2 10^3/ul (1.6-7.5); NEUTROPHILS % 72.4 % (39.0-77.0); PLATELET COUNT 345 10^3/UL (140-415); RED CELL DISTRIBUTION WIDTH 12.7 % (11.5-14.5); WHITE BLOOD COUNT 9.9 10^3/ul (4.8-10.8)
[2017-09-22 13:15] VITALS: BP 186/76; PULSE 81; RESP 17
[2017-09-22 13:33] LABS: ALBUMIN 4.5 g/dl (3.3-4.9); ALBUMIN/GLOBULIN RATIO 1.09; BILIRUBIN,INDIRECT 0.4 mg/dl (0-1.1); BILIRUBIN,TOTAL 0.4 mg/dl (0.2-1.3); CALCIUM 9.7 mg/dl (8.4-10.2); CREATININE 0.98 mg/dl (0.44-1.00); POTASSIUM 4.7 mmol/L (3.5-5.1); TOTAL PROTEIN 8.6 g/dl (6.1-8.1)
[2017-09-22 13:47] LABS: ADD UMIC NO; UR ASCORBIC ACID 40 mg/dL (NEGATIVE); UR BILIRUBIN (Dip) NEGATIVE (NEGATIVE); UR BLOOD (Dip) NEGATIVE (NEGATIVE); UR CLARITY SLIGHTLY CLOUDY (CLEAR); UR COLOR YELLOW (YELLOW); UR GLUCOSE (Dip) 1+ mg/dL (NEGATIVE); UR KETONES (Dip) TRACE mg/dL (NEGATIVE); UR LEUKOCYTE ESTERASE (Dip) NEGATIVE Leu/ul (NEGATIVE); UR NITRITE (Dip) NEGATIVE (NEGATIVE); UR RBC 1 /HPF (0-5); UR SPECIFIC GRAVITY (Dip) 1.019 (1.003-1.030); UR SQUAMOUS EPITHELIAL CELL FEW /HPF (FEW); UR TOTAL PROTEIN (Dip) NEGATIVE (NEGATIVE); UR UROBILINOGEN (Dip) NEGATIVE (NEGATIVE)
[2017-09-22] MEDS ORDERED: TRAM50TA2 PO (14:32)
== END 2017-09-22 15:07 | disposition home or self-care (01) ==
LOC: E/R 10:32
DX: M54.9 Dorsalgia, unspecified (principal); D64.9 Anemia, unspecified; I10 Essential (primary) hypertension; E11.9 Type 2 diabetes mellitus without complications; Z79.4 Long term (current) use of insulin; Z79.84 Long term (current) use of oral hypoglycemic drugs
CPT/HCPCS: 36415; 80053; 81001; 83690; 85025; 93005; Z7502; 81003

== ENCOUNTER 2017-10-08 09:22 | Emergency (ER) | payer MEDICAID, OTHER ==
[~2017-10-08] VITALS: Wt 73.7 kg
[~2017-10-08 09:22] MED LIST changes: +TRAM50TA2 PO
[2017-10-08 09:24] VITALS: Wt 73.7 kg
[2017-10-08] MEDS ORDERED: FAMOTIDINE 20 MG TAB PO STA (10:10)
--- NOTE | 2017-10-08 10:19 | ERD ---
ER Documentation Chief Complaint Chief Complaint abd pain, nausea, chills HPI Patient is a 71-year-old female who presents with gradual onset, constant, moderate, dull epigastric and bilateral upper quadrant pain for 8 days. She reports that the pain is worse when she eats. She denies vomiting. She reports constipation, and states that her last bowel movement was 3 days ago. She states that she feels full when she eats. She denies fever, vomiting, dysuria or hematuria. She reports bilateral flank pain. She states that she saw her PMD 2 days ago and was diagnosed with a urinary tract infection. She has been taking her medication. ROS All systems reviewed and are negative except as per history of present illness. Medications Home Meds Active Scripts Polyethylene Glycol* (Miralax*) 17 Gm Powd.pack, 17 GM PO DAILY, #3 Prov:SALINA BERTRAND MD 10/08/17 Famotidine* (Pepcid*) 20 Mg Tablet, 20 MG PO DAILY for 30 Days, TAB Prov:SALINA BERTRAND MD 10/08/17 Tramadol HCl (Tramadol HCl) 50 Mg Tablet, 50 MG PO Q6, #15 TAB Prov:DORINA STEWART MD 09/22/17 Ranitidine Hcl* (Zantac*) 150 Mg Tablet, 150 MG PO BID Y for EPIGASTRIC PAIN, # 30 TAB Prov:HERNANDEZ CAMARA DO 09/18/17 Reported Medications Metformin Hcl* (Metformin Hcl*) 850 Mg Tablet, 850 MG PO WITH BREAKFAST DINNE, # 30 TAB 08/31/17 Insulin Aspart* (Novolog Insulin Pen*) 100 Unit/Ml Soln, 10 UNIT SC AC MEALS qam , EA 08/31/17 Insulin Detemir (Levemir Flextouch) 100 Unit/1 Ml Insuln.pen, 30 UNIT SQ QHS 08/31/17 Losartan Potassium* (Losartan Potassium*) 50 Mg Tablet, 50 MG PO DAILY, TAB 08/31/17 Hydrochlorothiazide* (Hydrochlorothiazide*) 25 Mg Tab, 25 MG PO DAILY, #30 TAB 08/31/17 Gabapentin* (Gabapentin*) 300 Mg Capsule, 300 MG PO QHS, #60 CAP 08/31/17 Atorvastatin* (Atorvastatin*) 40 Mg Tablet, 40 MG PO QHS, #30 TAB 08/31/17 Allergies Allergies: Coded Allergies: No Known Allergies (Verified Allergy, Mild, 10/08/17) PMhx/Soc Past medical history: Diabetes mellitus, hypertension Past surgical history: Toe amputation, eye surgery Social history: Denies tobacco, alcohol or illicit drugs History of Surgery: Yes (right great toe amputation, right eye) Anesthesia Reaction: No Hx Neurological Disorder: No Hx Respiratory Disorders: No Hx Cardiac Disorders: Yes (HTN, high cholesterol) Hx Psychiatric Problems: No Hx Miscellaneous Medical Probl: Yes (DM) Hx Alcohol Use: No Hx Substance Use: No Hx Tobacco Use: No FmHx Family History: diabetes, No coronary disease Physical Exam Vitals Vital Signs Date Time Temp Pulse Resp B/P Pulse Ox O2 Delivery O2 Flow Rate FiO2 10/08/17 11:06 84 17 140/90 100 Room Air 10/08/17 09:24 97.3 87 20 189/86 98 Physical Exam Const: Alert, no acute distress Head: Atraumatic Eyes: Normal Conjunctiva, No pallor, no icterus ENT: Normal External Ears, Nose and Mouth. Mucous membranes moist Neck: Full range of motion..~ No meningismus. Resp: Clear to auscultation bilaterally, No wheezes, no rales Cardio: Regular rate and rhythm, no murmurs Abd: Soft, Mild epigastric and right upper quadrant tenderness, no rebound, no guarding Skin: No petechiae or rashes Back: No midline or flank tenderness, No CVA tenderness Ext: No cyanosis, or edema Neur: Awake and alert, Cranial nerves II through XII intact bilaterally, moves and feels 4 extremities appropriately Psych: Normal Mood and Affect Result Diagram: 10/08/17 1030 10/08/17 1030 Results 24 hrs Laboratory Tests Test 10/08/17 10:30 10/08/17 10:35 White Blood Count 9.410^3/ul Red Blood Count 4.1910^6/ul Hemoglobin 12.1g/dl Hematocrit 37.3% Mean Corpuscular Volume 89.0fl Mean Corpuscular Hemoglobin 28.9pg Mean Corpuscular Hemoglobin Concent 32.4g/dl Red Cell Distribution Width 12.7% Platelet Count 75900^3/UL Mean Platelet Volume 10.5fl Neutrophils % 70.8% Lymphocytes % 20.7% Monocytes % 6.5% Eosinophils % 0.9% Basophils % 0.7% Nucleated Red Blood Cells % 0.0/100WBC Neutrophils # 6.610^3/ul Lymphocytes # 1.910^3/ul Monocytes # 0.610^3/ul Eosinophils # 0.110^3/ul Basophils # 0.110^3/ul Nucleated Red Blood Cells # 0.010^3/ul Sodium Level 141mmol/L Potassium Level 4.5mmol/L Chloride Level 99mmol/L Carbon Dioxide Level 29mmol/L Anion Gap 18 Blood Urea Nitrogen 20mg/dl Creatinine 0.86mg/dl Glucose Level 216mg/dl Calcium Level 9.5mg/dl Total Bilirubin 0.3mg/dl Direct Bilirubin 0.00mg/dl Indirect Bilirubin 0.3mg/dl Aspartate Amino Transf (AST/SGOT) 35IU/L Alanine Aminotransferase (ALT/SGPT) 31IU/L Alkaline Phosphatase 103IU/L Total Protein 7.7g/dl Albumin 4.3g/dl Globulin 3.40g/dl Albumin/Globulin Ratio 1.26 Lipase 66U/L Urine Color YELLOW Urine Clarity CLEAR Urine pH 6.0 Urine Specific [place] 1.015 Urine Ketones NEGATIVEmg/dL Urine Nitrite NEGATIVEmg/dL Urine Bilirubin NEGATIVEmg/dL Urine Urobilinogen NEGATIVEmg/dL Urine Leukocyte Esterase TRACELeu/ul Urine Microscopic RBC 1/HPF Urine Microscopic WBC 4/HPF Urine Squamous Epithelial Cells FEW/HPF Urine Hemoglobin 1+mg/dL Urine Glucose 2+mg/dL Urine Total Protein NEGATIVEmg/dl Current Medications Medications (Trade) Dose Ordered Sig/Juli Route PRN Reason Start Time Stop Time Status Last Admin Dose Admin Famotidine (Pepcid) 20 mg ONCE STAT PO 10/08/17 10:10 10/08/17 10:11 DC 10/08/17 11:05 Procedures/MDM EKG read by me: Time 1028, rate 85 Rhythm: Normal sinus [place]: Normal Intervals: Normal ST-T waves: no ischemic changes Ectopy: No Q-waves: No, poor R-wave progression Impression: No evidence of ischemia or arrhythmia MDM: Patient is a 71-year-old female who presents with epigastric abdominal pain that is worse with eating for the last week. The patient has a relatively benign abdominal exam. She does report constipation and abdominal bloating. X- ray shows no signs of bowel obstruction. Right upper quadrant ultrasound shows no signs of cholelithiasis. The patient has not had fever or vomiting. She has no lower abdominal tenderness. Her urinalysis is negative, and lab tests are unremarkable. Her symptoms are improved with Pepcid. She will be given a prescription for Pepcid and MiraLAX. There are no features concerning for coronary ischemia and the patient's EKG is nonischemic. The patient was counseled to follow-up with her primary care physician and on return precautions. Departure Diagnosis: Primary Impression: Abdominal pain Abdominal location: epigastric Qualified Code: R10.13 - Epigastric pain Condition: Stable SALINA BERTRAND MD Oct 08, 2017 10:19
--- NOTE | 2017-10-08 10:47 | RADRPT ---
PROCEDURE: XR Abdomen. CLINICAL INDICATION: Abdomen pain. TECHNIQUE: AP supine abdomen x-ray. COMPARISON: CT scan of the abdomen and pelvis dated 09/18/2017. FINDINGS: The bowel gas pattern is normal. There is no evidence of obstruction. There are no abnormal calcifications overlying the urinary tracts. There are calcifications in the right side of the pelvis consistent with a calcified fibroid as seen on prior CT scan. There are mild degenerative changes of the spine with osteophytes noted. IMPRESSION: 1. No evidence of bowel obstruction. 2. Calcified fibroid in the right side of the pelvis. 3. Mild degenerative changes of the spine. 4. Otherwise unremarkable study. RPTAT: QQ .Parker Tim MD, MD Date Time Electronically viewed and signed by .Parker Tim MD, on 10/08/2017 10:47 .R/
[2017-10-08 11:06] VITALS: BP 140/90; PULSE 84; RESP 17
--- NOTE | 2017-10-08 11:20 | RADRPT ---
PROCEDURE: US Abdomen (right upper quadrant). CLINICAL INDICATION: Abdominal pain. TECHNIQUE: Multiple real-time longitudinal and transverse images of the right upper quadrant of th e abdomen were acquired utilizing a curved array transducer. Images were reviewed on a high-resoluti on PACS workstation. COMPARISON: CT from 09/18/2017. FINDINGS: The liver is normal in size and demonstrates mildly increased echogenicity without focal mass or int rahepatic biliary dilatation. The gallbladder is normal. There is no pericholecystic fluid or gall bladder wall thickening or gallstones. No intra or extrahepatic biliary dilatation is seen. The co mmon bile duct measures 4.4 mm in maximal dimension. The visualized portions of the pancreas are un remarkable with obscuration of the tail of the pancreas. No free fluid is identified. The right kidney measures 9.1 cm in length. There is normal echogenicity within the right kidney. There is no perinephric fluid collection. No hydronephrosis, mass, or calculus is seen. IMPRESSION: Mildly increased hepatic echogenicity suggesting steatosis. Otherwise, unremarkable right upper quad rant ultrasound. RPTAT: JJ .Finesse Trinh MD, Date Time Electronically viewed and signed by .Finesse Trinh MD, on 10/08/2017 11:19 .A/
[2017-10-08] MEDS ORDERED: FAMO-96 PO (11:42)
[2017-10-08] MEDS ORDERED: POLY17PO6 PO (11:42)
== END 2017-10-08 11:53 | disposition home or self-care (01) ==
LOC: E/R 09:22
DX: R10.13 Epigastric pain (principal); E11.9 Type 2 diabetes mellitus without complications; I10 Essential (primary) hypertension; Z79.4 Long term (current) use of insulin; Z79.84 Long term (current) use of oral hypoglycemic drugs
CPT/HCPCS: 36415; 74000; 76705; 80053; 81001; 83690; 85025; 93005; Z7502; Z7610